=== PATIENT | female | born 1980 | race Caucasian/White ===

== ENCOUNTER 2018-03-22 12:10 | Emergency (ER) | payer OTHER ==
[~2018-03-22] VITALS: Ht 170.2 cm; Wt 86.2 kg
[2018-03-22 12:20] VITALS: Ht 170.2 cm; Wt 86.2 kg
[2018-03-22 15:11] VITALS: BP 106/57
== END 2018-03-22 15:11 | disposition home or self-care (01) ==
LOC: ED 12:10
DX: O26.892 Other specified pregnancy related conditions, second trimester (principal); M54.9 Dorsalgia, unspecified

== ENCOUNTER 2020-02-14 12:27 | Emergency (ER) | payer MEDICAID ==
[~2020-02-14] VITALS: Ht 167.6 cm; Wt 88.5 kg
[2020-02-14 12:30] VITALS: Ht 167.6 cm; Wt 88.5 kg
[2020-02-14 14:18] VITALS: BP 121/82
== END 2020-02-14 14:18 | disposition home or self-care (01) ==
LOC: ED 12:27
DX: S93.401A Sprain of unspecified ligament of right ankle, initial encounter (principal); X50.3XXA Overexertion from repetitive movements, initial encounter; Y93.89 Activity, other specified; Y92.89 Other specified places as the place of occurrence of the external cause; Y99.8 Other external cause status
CPT/HCPCS: Q0092